=== PATIENT | female | born 1980 ===

== ENCOUNTER 2016-06-19 02:54 | Emergency (ER) | payer OTHER ==
[2016-06-19 03:15] VITALS: BP 130/87
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
== END 2016-06-19 08:00 | disposition home or self-care (01) ==
LOC: ED 02:54
DX: M79.1 Myalgia (principal); R51 Headache; Z98.51 Tubal ligation status; V43.52XA Car driver injured in collision with other type car in traffic accident, initial encounter; Y93.89 Activity, other specified; Y99.8 Other external cause status; Y92.89 Other specified places as the place of occurrence of the external cause
CPT/HCPCS: 70450; 72125; 81025

== ENCOUNTER 2021-06-23 20:26 | Emergency (ER) | payer SELFPAY | END 2021-06-24 19:45 | disposition home or self-care (01) | LOC: ED 20:26 | DX: I10 Essential (primary) hypertension (principal); Z53.21 Procedure and treatment not carried out due to patient leaving prior to being seen by health care provider ==